=== PATIENT | male | born 1960 | race Two or more races ===

== ENCOUNTER 2020-01-04 23:49 | Emergency (ER) | payer SELFPAY ==
[~2020-01-04] VITALS: Ht 172.7 cm; Wt 81.6 kg
[2020-01-04] MEDS ORDERED: IBUPROFEN600 M1 ORAL (23:50)
[2020-01-05 00:01] VITALS: BP 132/74
--- NOTE | 2020-01-05 00:01 | NUR ---
ED Nurse Note: pt biba from home [place] abdominal pain 10/10 in lower abdomen x 30 min. Pt states that issue happened once before but denies being seen by any MD. Pt aao x 4, VSS no ss of distress noted. 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 Awaiting ERMD at bedside, awaiting further orders. Will continue to monitor. PT states that he cannot provide urine sample at this time. ERMD aware.
--- NOTE | 2020-01-05 00:23 | Emergency Room Report ---
History of Present Illness General Chief Complaint: Abdominal Pain Source: Patient, EMS Present Illness HPI Patient is a 59-year-old female presents after increased Lower abdominal pain. Patient had previously had a coronavirus infection in November. He wanted to vomit. Reports of increased left-sided lower abdominal pain. Denies any diarrhea. [place] like intermittent pain denies any recent fevers. He reportedly had negative testing performed. Denies any shortness of breath. 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 Patient History Past Medical History: see triage record Reviewed Nursing Documentation: PMH: Agreed; PSxH: Agreed Nursing Documentation-PMH Past Medical History: No Stated History Review of Systems All Other Systems: negative except mentioned in HPI Physical Exam Vital Signs Date Time Temp Pulse Resp B/P (MAP) Pulse Ox O2 Delivery O2 Flow Rate FiO2 01/04/20 23:51 98.8 72 16 132/74 (93) 100 Room Air Sp02 EP Interpretation: reviewed, normal General Appearance: normal inspection, well appearing, no apparent distress, alert, GCS 15 Head: atraumatic ENT: normal ENT inspection, hearing grossly normal, normal voice Neck: normal inspection, full range of motion, supple, no bony tend Respiratory: normal inspection, lungs clear, normal breath sounds, no respiratory distress, no retraction, no wheezing Cardiovascular #1: regular rate, rhythm, no edema Gastrointestinal: normal inspection, normal bowel sounds, non tender, soft, no guarding, no hernia Genitourinary: no CVA tenderness Musculoskeletal: normal inspection, back normal, normal range of motion Neurologic: alert, motor strength/tone normal, 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 Differential diagnosis include was not limited to diverticulitis, colitis, aortic aneurysm, gastroenteritis among others. Because of complexity of patient's case laboratory tests and imaging studies were ordered. Patient was noted to have suprapubic pain. He does not have any evidence of urinary infection. CT imaging was ordered to rule out appendicitis and colitis. Patient is given medications for abdominal discomfort. He reported having improvement in symptoms. CT imaging showed some questionable thickening of the sigmoid colon due to under distention without evidence of appendicitis or stone. Patient given medications for symptomatic treatment. He stated felt comfortable better. Patient be discharged home. He was advised to follow-up with primary care physician for recheck in 1 to 2 days. He is to return if worse. This medical record is generated with [employer] software. There may be some college sports [employer] discrepancies related to use of this software Labs Test 01/05/20 00:15 01/05/20 02:34 White Blood Count 9.4 K/UL (4.8-10.8) Red Blood Count 4.23 M/UL (4.70-6.10) Hemoglobin 13.7 G/DL (14.2-18.0) Hematocrit 39.5 % (42.0-52.0) Mean Corpuscular Volume 93 FL (80-99) Mean Corpuscular Hemoglobin 32.3 PG (27.0-31.0) Mean Corpuscular Hemoglobin Concent 34.6 G/DL (32.0-36.0) Red Cell Distribution Width 11.7 % (11.6-14.8) Platelet Count 218 K/UL (150-450) Mean Platelet Volume 5.4 FL (6.5-10.1) Neutrophils (%) (Auto) 60.2 % (45.0-75.0) Lymphocytes (%) (Auto) 25.4 % (20.0-45.0) Monocytes (%) (Auto) 8.2 % (1.0-10.0) Eosinophils (%) (Auto) 5.5 % (0.0-3.0) Basophils (%) (Auto) 0.8 % (0.0-2.0) Prothrombin Time 11.4 SEC (9.30-11.50) Prothromb Time International Ratio 1.0 (0.9-1.1) Activated Partial Thromboplast Time 25 SEC (23-33) Sodium Level 140 MMOL/L (136-145) Potassium Level 3.0 MMOL/L (3.5-5.1) Chloride Level 106 MMOL/L (98-107) Carbon Dioxide Level 25 MMOL/L (21-32) Anion Gap 9 mmol/L (5-15) Blood Urea Nitrogen 20 mg/dL (7-18) Creatinine 0.9 MG/DL (0.55-1.30) Estimat Glomerular Filtration Rate > 60 mL/min (>60) Glucose Level 133 MG/DL (74-106) Calcium Level 9.2 MG/DL (8.5-10.1) Total Bilirubin 1.1 MG/DL (0.2-1.0) Direct Bilirubin 0.2 MG/DL (0.0-0.3) Aspartate Amino Transf (AST/SGOT) 21 U/L (15-37) Alanine Aminotransferase (ALT/SGPT) 37 U/L (12-78) Alkaline Phosphatase 52 U/L (46-116) Total Protein 7.5 G/DL (6.4-8.2) Albumin 4.2 G/DL (3.4-5.0) Globulin 3.3 g/dL Albumin/Globulin Ratio 1.3 (1.0-2.7) Lipase 109 U/L (73-393) Urine Color Yellow Urine Appearance Clear Urine pH 6.5 (4.5-8.0) Urine Specific [place] 1.010 (1.005-1.035) Urine Protein 2+ (NEGATIVE) Urine Glucose (UA) Negative (NEGATIVE) Urine Ketones 1+ (NEGATIVE) Urine Blood 1+ (NEGATIVE) Urine Nitrite Negative (NEGATIVE) Urine Bilirubin Negative (NEGATIVE) Urine Urobilinogen 1 MG/DL (0.0-1.0) Urine Leukocyte Esterase 1+ (NEGATIVE) Urine RBC 0-2 /HPF (0 - 0) Urine WBC 0-2 /HPF (0 - 0) Urine Squamous Epithelial Cells None /LPF (NONE/OCC) Urine Bacteria None /HPF (NONE) Last Vital Signs Date Time Temp Pulse Resp B/P (MAP) Pulse Ox O2 Delivery O2 Flow Rate FiO2 01/04/20 23:51 98.8 72 16 132/74 (93) 100 Room Air Status: improved Disposition: HOME, SELF-CARE Condition: Stable Scripts Dicyclomine Hcl* (DICYCLOMINE HCL*) 10 Mg Capsule 10 MG ORAL QID, #20 CAP Prov: Roni Aleman MD 01/05/20 Ondansetron Odt* (ZOFRAN ODT*) 8 Mg Tab.rapdis 8 MG ORAL Q6H PRN for Nausea & Vomiting, #30 TAB Prov: Roni Aleman MD 01/05/20 Referrals: NOT CHOSEN IPA/,REFERRING (PCP) Roni Aleman MD Jan 05, 2020 00:23
--- NOTE | 2020-01-05 00:24 | NUR ---
ED Nurse Note: All medications administered, pt tolerated well no ss of distress noted. will continue to monitor.
[2020-01-05] MEDS ORDERED: Omnipaque-300 100ml vial INJ PRN (00:30)
[2020-01-05 00:42] LABS: BASOPHILS % (AUTO) 0.8 % (0.0-2.0); EOSINOPHILS % (AUTO) 5.5 % (0.0-3.0); HEMATOCRIT 39.5 % (42.0-52.0); HEMOGLOBIN 13.7 G/DL (14.2-18.0); LYMPHOCYTES % (AUTO) 25.4 % (20.0-45.0); MEAN CORPUSCULAR VOLUME 93 FL (80-99); MONOCYTES % (AUTO) 8.2 % (1.0-10.0); NEUTROPHILS % (AUTO) 60.2 % (45.0-75.0); PLATELET COUNT 218 K/UL (150-450); RED BLOOD COUNT 4.23 M/UL (4.70-6.10); RED CELL DISTRIBUTION WIDTH 11.7 % (11.6-14.8); WHITE BLOOD COUNT 9.4 K/UL (4.8-10.8)
[2020-01-05 00:57] LABS: ANION GAP 9 mmol/L (5-15); BLOOD UREA NITROGEN 20 mg/dL (7-18); CALCIUM 9.2 MG/DL (8.5-10.1); CARBON DIOXIDE 25 MMOL/L (21-32); CHLORIDE 106 MMOL/L (98-107); CREATININE 0.9 MG/DL (0.55-1.30); SODIUM 140 MMOL/L (136-145)
[2020-01-05 01:06] LABS: ALANINE AMINOTRANSFERASE 37 U/L (12-78); ALBUMIN 4.2 G/DL (3.4-5.0); ALBUMIN/GLOBULIN RATIO 1.3 (1.0-2.7); ALKALINE PHOSPHATASE 52 U/L (46-116); ASPARTATE AMINO TRANSFERASE 21 U/L (15-37); BILIRUBIN,TOTAL 1.1 MG/DL (0.2-1.0)
[2020-01-05 01:13] LABS: BILIRUBIN,DIRECT 0.2 MG/DL (0.0-0.3)
--- NOTE | 2020-01-05 01:45 | NUR ---
ED Nurse Note: pt taken to CT in stable condition, VSS no ss of distress noted. will continue to monitor.
--- NOTE | 2020-01-05 02:00 | NUR ---
ED Nurse Note: Pt returned from CT in stable condition VSS no ss of distress noted.
--- NOTE | 2020-01-05 02:19 | NUR ---
ED Nurse Note: all medications administered, pt tolerated well no ss of distress noted. will continue to monitor.
[2020-01-05 02:30] VITALS: BP 125/76
[2020-01-05 02:45] LABS: APPEARANCE,URINE CLEAR; BILIRUBIN, URINE NEGATIVE (NEGATIVE); GLUCOSE, URINE (UA) NEGATIVE (NEGATIVE); KETONES,URINE 1+ (NEGATIVE); LEUKOCYTE ESTERASE ,URINE 1+ (NEGATIVE); NITRITE,URINE NEGATIVE (NEGATIVE); PH,URINE 6.5 (4.5-8.0); PROTEIN,URINE 2+ (NEGATIVE); UROBILINOGEN,URINE 1 MG/DL (0.0-1.0)
[2020-01-05 02:56] LABS: COLOR,URINE YELLOW
[2020-01-05] MEDS ORDERED: Dicyclomine HCl 10mg/5ml oral soln ORAL ONE (03:30)
--- NOTE | 2020-01-05 03:53 | Diagnostic Imaging Report ---
EXAM: CT Abdomen and Pelvis With Intravenous Contrast CLINICAL HISTORY: ABD PAIN TECHNIQUE: Axial computed tomography images of the abdomen and pelvis with intravenous contrast. CTDI is 5.8 mGy and DLP is 332.3 mGy-cm. One or more of the following dose reduction techniques were used: automated exposure control, adjustment of the mA and/or kV according to patient size, use of iterative reconstruction technique. CONTRAST: 90 cc of Omnipaque 300 administered COMPARISON: No prior FINDINGS: Lung bases: Bibasilar atelectasis. Mediastinum: Small hiatal hernia. ABDOMEN: Liver: Unremarkable. No mass. Gallbladder and bile ducts: Unremarkable. No calcified stones. No ductal dilation. Pancreas: Unremarkable. No mass. No ductal dilation. Spleen: Unremarkable. No splenomegaly. Adrenals: Unremarkable. No mass. Kidneys and ureters: Unremarkable. No solid mass. No hydronephrosis. Stomach and bowel: Mild thickening of the sigmoid colon likely due to under distention. Mild retained stool. Thickening of the proximal to mid stomach likely due to under distention. Recommend clinical correlation and follow-up to exclude other etiology including gastritis. No focal small bowel dilatation. PELVIS: Appendix: No findings to suggest acute appendicitis. Bladder: Thickening of the bladder wall likely due to under distention. Reproductive: Slight heterogeneous prostate, nonspecific. ABDOMEN and PELVIS: Intraperitoneal space: Unremarkable. No free air. No significant fluid collection. Bones/joints: No acute fracture. No dislocation. Soft tissues: Tiny periumbilical hernia containing fat. Vasculature: Unremarkable. No abdominal aortic aneurysm. Lymph nodes: Unremarkable. No enlarged lymph nodes. IMPRESSION: 1. Nonspecific bowel gas pattern with mild retained stool. 2. Mild thickening of the sigmoid colon likely due to under distention. Recommend clinical correlation and follow-up to exclude early focal colitis. 3. No appendicitis. 4. No renal calculus or hydronephrosis.
--- NOTE | 2020-01-05 04:20 | NUR ---
ED Nurse Note: Pt sleeping in bed, VSS no ss of distress noted. will continue to monitor.
[2020-01-05 04:48] VITALS: BP 127/82
--- NOTE | 2020-01-05 05:00 | NUR ---
ED Nurse Note: ERMD at bedside
[2020-01-05] MEDS ORDERED: DICYCLOMINE HCL10 MG ORAL (05:08)
[2020-01-05] MEDS ORDERED: ZOFRAN ODT8 MG ORAL (05:08)
[2020-01-05 05:26] VITALS: BP 134/84
--- NOTE | 2020-01-05 05:26 | NUR ---
ER DISCHARGE NOTE: Patient is cleared to be discharged home per ERMD, pt is aox4, 98% on room air, with stable vital signs. pt was given dc and prescription instructions, pt was able to verbalize understanding, pt id band and iv site removed without complications. pt is able to ambulate with steady gait. pt took all belongings. pt verbalized understanding of discharge instructions
== END 2020-01-05 05:26 | disposition home or self-care (01) ==
LOC: EDBD 23:49 → EMR 23:59
DX: R10.30 Lower abdominal pain, unspecified (principal); Z86.19 Personal history of other infectious and parasitic diseases; K44.9 Diaphragmatic hernia without obstruction or gangrene
CPT/HCPCS: 36415; 74177; 80053; 81003; 82248; 83690; 85025; 85610; 85730; 86850; 86900; 86901; 99284; J7040; Q9967; J8499